=== PATIENT | female | born 1970 ===

== ENCOUNTER 2017-07-29 19:53 | Emergency (ER) | payer MEDICARE ==
[2017-07-29 20:54] LABS: HCG,QUALITATIVE URINE NEGATIVE (NEGATIVE)
[2017-07-29 21:03] LABS: SQUAMOUS EPITHIAL 10 /hpf (0-5); URINE BILIRUBIN NEGATIVE (NEGATIVE); URINE BLOOD 1+ (NEGATIVE); URINE CLARITY Hazy (Clear); URINE COLOR Yellow (YELLOW); URINE GLUCOSE (UA) 3+ mg/dL (Normal); URINE LEUKOCYTE ESTERASE TRACE Leu/uL (Negative); URINE PROTEIN NEGATIVE (NEGATIVE); URINE UROBILINOGEN NORMAL mg/dL (0.2-1.0)
--- NOTE | 2017-07-29 21:28 | C.PDOC ---
History Of Present Illness <Spring Britton - Last Filed: 07/29/17 21:43> <Pilo Pedro DO - Last Filed: 07/30/17 01:03> Patient is a 47 y/o F with PMHx DMII, HTN, bipolar disorder, and fibroids who presents today for 3 days of lower abdominal pain that radiates to the low back and buttocks. Patient describes the pain as sharp, rates it as a 9/10, and says it comes and goes. Patient has never had pain like this before. Patient admits to nausea, but no vomiting. Patient denies constipation or diarrhea. Patient's LMP was 2 years ago. Patient denies any vaginal bleeding or discharge or any dysuria or hematuria. (Spring Britton) History Per: Patient History/Exam Limitations: language barrier Onset/Duration Of Symptoms: Days Current Symptoms Are (Timing): Still Present Severity: Moderate Location Of Pain/Discomfort: RLQ, LLQ Radiation Of Pain To:: Back, Flank, Other (buttocks) Quality Of Discomfort: Sharp Associated Symptoms: Back Pain (low back pain bilaterally ). denies: Fever, Nausea, Vomiting, Diarrhea, Constipation, Urinary Symptoms Exacerbating Factors: Movement Alleviating Factors: None Last Bowel Movement: Yesterday <Spring Britton - Last Filed: 07/29/17 21:43> <Pilo Pedro DO - Last Filed: 07/30/17 01:03> Chief Complaint (Nursing): Abdominal Pain Past Medical History - Medical History PMH: Bipolar Disorder, Diabetes, HTN Surgical History: Family History: States: Diabetes (mom and dad), Hypertension (mom and dad) - Social History Hx Tobacco Use: Yes (1/2 ppd for 2 years) Hx Alcohol Use: No Hx Substance Use: No <Spring Britton - Last Filed: 07/29/17 21:43> Vital Signs: Last Vital Signs Temp 98.2 F 07/30/17 00:00 Pulse 74 07/30/17 00:00 Resp 14 07/30/17 00:00 BP 169/84 H 07/30/17 00:00 Pulse Ox 98 07/30/17 00:00 Review Of Systems Constitutional: Negative for: Fever, Chills Cardiovascular: Negative for: Chest Pain Respiratory: Negative for: Cough, Shortness of Breath Gastrointestinal: Positive for: Nausea, Abdominal Pain. Negative for: Vomiting , Diarrhea, Constipation Genitourinary: Negative for: Dysuria, Hematuria Musculoskeletal: Positive for: Back Pain (low back pain b/l ) Skin: Negative for: Rash Psych: Positive for: Other (bipolar) <Spring BrittonRony - Last Filed: 07/29/17 21:43> Physical Exam - Physical Exam Appears: Non-toxic, In Acute Distress Skin: Normal Color, Warm, Dry Head: Atraumatic, Normacephalic, No Tenderness Eye(s): bilateral: Normal Inspection Neck: Normal, Normal ROM Chest: Symmetrical Cardiovascular: Rhythm Regular Respiratory: Normal Breath Sounds Gastrointestinal/Abdominal: Bowel Sounds, Soft, Tenderness (RLQ and LLQ tenderness to palpation ) Back: Normal Inspection, No CVA Tenderness Extremity: Normal ROM, No Tenderness, No Pedal Edema Neurological/Psych: Oriented x3 <EleuteriofletcherSpring Elmira - Last Filed: 07/29/17 21:43> ED Course And Treatment O2 Sat by Pulse Oximetry: 98 <Spring Britton Elmira - Last Filed: 07/29/17 21:43> - Laboratory Results Result Diagrams: 07/29/17 21:34 07/29/17 21:34 - CT Scan/US CT abd/pelvis Other Rad Studies (CT/US): Read By Radiologist, Radiology Report Reviewed CT/US Interpretation: FINDINGS: Lung bases: Small airway trapping and microatelectasis. ABDOMEN: Liver: There is hepatomegaly and fatty infiltration of the liver. 2 cm enhancing or hyperdense mass. in the left hepatic lobe, which is likely a hemangioma. This could be further evaluated nonemergently. Too small to characterize subcapsular right hepatic hypodensity. Gallbladder and bile ducts: Contracted gallbladder No calcified stones. No ductal dilation. Pancreas: Unremarkable. No mass. No ductal dilation. Spleen: Unremarkable. No splenomegaly. Adrenals: Unremarkable. No mass. Kidneys and ureters: No hydronephrosis or differential renal nephrogram. Stomach and bowel: Slightly disorganized appearance to the distal and terminal ileum without. obstruction requires clinical correlation.. Diverticulosis coli, without full-filling the C.T. criteria for. diverticulitis. No perforation, or abscess. No signs or history of bleeding provided. PELVIS: Appendix: No findings to suggest acute appendicitis. Bladder: Unremarkable. No mass. Reproductive: Unremarkable as visualized. ABDOMEN and PELVIS: Intraperitoneal space: Unremarkable. No free air. No significant fluid collection. Bones/joints: No acute fracture. No dislocation. Soft tissues: Unremarkable. Vasculature: Unremarkable. No abdominal aortic aneurysm. Lymph nodes: Unremarkable. No enlarged lymph nodes. IMPRESSION: No definitive or acute CT findings to explain the patient's presentation. Hepatic lesions which are likely benign but require definitive nonemergent evaluation if not previously. done. The appendix is not identified with certainty but there are no secondary C.T. findings of appendicitis. Slightly disorganized appearance to the distal and terminal ileum. Diverticulosis without CT diverticulitis. There is hepatomegaly and fatty infiltration of the liver. Thank you for allowing us to participate in the care of your patient. Dictated and Authenticated by: Ernestine Hill MD. 07/30/2017 12:52 AM Eastern Time ([place] & [place]) <Pilo Pedro DO - Last Filed: 07/30/17 01:03> Medical Decision Making <Spring Britton - Last Filed: 07/29/17 21:43> <Pilo Pedro DO - Last Filed: 07/30/17 01:03> Medical Decision Making: Assessment: LLQ and RLQ abdominal pain Plan: Labs CT abd/ pelvis with iv contrast U/A and urinalysis (Spring Britton) Disposition <Spring Britton - Last Filed: 07/29/17 21:43> - Disposition Disposition Time: 00:50 <Pilo Pedro DO - Last Filed: 07/30/17 01:03> - Disposition Referrals: [facility] Rachana Req, [Non-Staff] - Disposition: HOME/ ROUTINE Condition: GOOD Additional Instructions: SOHAN JARVIS, thank you for letting us take care of you today. Your provider was Pilo Pedro DO and you were treated for STOMACH PAINS. The emergency medical care you received today was directed at your acute symptoms. If you were prescribed any medication, please fill it and take as directed. It may take several days for your symptoms to resolve. Return to the Emergency Department if your symptoms worsen, do not improve, or if you have any other problems. Please contact your doctor or call one of the physicians/clinics you have been referred to that are listed on the Patient Visit Information form that is included in your discharge packet. Bring any paperwork you were given at discharge with you along with any medications you are taking to your follow up visit. Our treatment cannot replace ongoing medical care by a primary care provider outside of the emergency department. Thank you for allowing the [facility] team to be part of your care today. Follow up with your primary care doctor in 2-3 days for re-evaluation and further management. SOHAN JARVIS, samir por dejarnos atenderlo hoy. Lopez proveedor fue Pilo Passafaro DO y usted recibi tratamiento para TESSIE DE ESTMAGO. La atencin m dica de emergencia que recibi hoy estaba dirigida a harriet sntomas agudos. Si le prescribieron algn medicamento, llnelo y tome segn las indicaciones. Harriet s ntomas pueden tardar varios mendoza en resolverse. Regrese al Departamento de Emergencia si harriet sntomas empeoran, no mejoran o si tiene algn otro problema. Comunquese con lopez mdico o llame a karen de los mdicos / clnicas a los que irwin sido referido que figura en el formulario de Informacin de visita del paciente que se incluye en lopez paquete de martin. Traiga todos los documentos que recibi al momento del martin junto con los medicamentos que est tomando en lopez visita de seguimiento. Nuestro tratamiento no puede reemplazar la atencin mdica en curso por un proveedor de atencin primaria fuera del departamento de emergencia. Samir por permitir que el equipo de [facility] sea parte de lopez cuidado hoy. Cat un seguimiento con lopez mdico de atencin primaria en 2-3 mendoza para anahy nueva evaluacin y administracin adicional. Prescriptions: Ciprofloxacin [Cipro] 500 mg PO BID #10 tab Ibuprofen [Motrin] 600 mg PO Q6 PRN #20 tab PRN Reason: Pain, Moderate (4-7) Instructions: Urinary Tract Infection, Adult (DC) Forms: Gen Discharge Inst South African, Passworks (South African) Print Language: SWEDISH - Clinical Impression Clinical Impression: Abdominal pain - PA / TAR AND AMMONIA PUMP OPERATOR / Resident Statement / has reviewed & agrees with the documentation as recorded. / has examined the patient and agrees with the treatment plan. <Pilo Pedro DO - Last Filed: 07/30/17 01:03>
[2017-07-29 21:38] LABS: BASO % 0.3 % (0.0-2.0); EOS # 0.3 K/uL (0.0-0.7); EOS % 4.2 % (0.0-4.0); HEMOGLOBIN 12.6 g/dL (11.0-16.0); LYMPH # 2.2 K/uL (1.0-4.3); LYMPH % 33.1 % (20.0-40.0); MEAN CELL VOLUME 95.6 fL (81.0-99.0); MEAN CORPUSCULAR HEMOGLOBIN 32.2 pg (27.0-31.0); MEAN CORPUSCULAR HGB CONC 33.7 g/dL (33.0-37.0); MEAN PLATELET VOLUME 8.5 fL (7.2-11.7); MONO # 0.4 K/uL (0.0-0.8); MONO % 5.3 % (0.0-10.0); NEUT # 3.8 K/uL (1.8-7.0); NEUT % 57.1 % (50.0-75.0); NRBC % 0.2 % (0.0-2.0); RBC 3.92 Mil/uL (3.80-5.20); RED CELL DISTRIBUTION WIDTH 12.3 % (11.5-14.5); WHITE BLOOD COUNT 6.7 K/uL (4.8-10.8)
[2017-07-29 21:49] LABS: ALB/GLOB RATIO 1.5 (1.0-2.1); ALT/SGPT 22 U/L (9-52); AST/SGOT 18 U/L (14-36); BLOOD UREA NITROGEN 12 mg/dL (7-17); CALCIUM 9.1 mg/dl (8.6-10.4); GFR AFRICAN-AMERICAN > 60; GFR NON-AFRICAN AMERICAN > 60
[2017-07-29] MEDS ORDERED: Iodixanol 320 MG/ML 100 ML BOTTLE IV ONE (22:26)
[2017-07-30 01:15] VITALS: BP 150/90; PULSE 90; RESP 20; TEMP 97.2; O2SAT 97
--- NOTE | 2017-07-30 08:42 | CT ---
PROCEDURE: CT Abdomen and Pelvis with contrast HISTORY: RLQ and LLQ pain COMPARISON: None. TECHNIQUE: Contrast dose: 100 cc of Omnipaque Radiation dose: Total exam DLP = 486mGy-cm. This CT exam was performed using one or more of the following dose reduction techniques: Automated exposure control, adjustment of the mA and/or kV according to patient size, and/or use of iterative reconstruction technique. FINDINGS: LOWER THORAX: Unremarkable. LIVER: 17 millimeter enhancing lesion in the peripheral left hepatic lobe which is nonspecific. Recommend correlation with MRI with and without contrast. 1 centimeter right hepatic lobe GALLBLADDER AND BILE DUCTS: Unremarkable. PANCREAS: Unremarkable. No gross lesion or ductal dilatation. SPLEEN: Unremarkable. ADRENALS: Unremarkable. No mass. KIDNEYS AND URETERS: Unremarkable. No hydronephrosis. No solid mass. VASCULATURE: Unremarkable. No aortic aneurysm. BOWEL: Unremarkable. No obstruction. No gross mural thickening. APPENDIX: Normal appendix. PERITONEUM: Unremarkable. No free fluid. No free air. LYMPH NODES: Unremarkable. No enlarged lymph nodes. BLADDER: Unremarkable. REPRODUCTIVE: Unremarkable. BONES: No acute fracture. OTHER FINDINGS: None. IMPRESSION: 17 millimeter enhancing lesion in the peripheral left hepatic lobe which is nonspecific. Recommend correlation with MRI with and without contrast.
== END 2017-07-30 01:15 | disposition home or self-care (01) ==
LOC: C.ER 19:53
DX: R10.9 Unspecified abdominal pain (principal); I10 Essential (primary) hypertension; E11.9 Type 2 diabetes mellitus without complications
CPT/HCPCS: 74177; 80053; 81001; 84703; 85025; 87086; 96374; 99285; J1885; Q9967

== ENCOUNTER 2018-07-10 15:02 | Inpatient (IN) | payer MEDICARE ==
[2018-07-10 15:34] LABS: BASO # 0.1 K/uL (0.0-0.2); BASO % 1.3 % (0.0-2.0); EOS # 0.2 K/uL (0.0-0.7); EOS % 1.8 % (0.0-4.0); LYMPH # 2.2 K/uL (1.0-4.3); LYMPH % 23.1 % (20.0-40.0); MEAN CELL VOLUME 92.6 fL (81.0-99.0); MEAN CORPUSCULAR HEMOGLOBIN 31.4 pg (27.0-31.0); MEAN CORPUSCULAR HGB CONC 33.9 g/dL (33.0-37.0); MONO # 0.5 K/uL (0.0-0.8); MONO % 4.9 % (0.0-10.0); NEUT # 6.5 K/uL (1.8-7.0); NEUT % 68.9 % (50.0-75.0); RBC 4.46 Mil/uL (3.80-5.20); RED CELL DISTRIBUTION WIDTH 12.7 % (11.5-14.5); WHITE BLOOD COUNT 9.4 K/uL (4.8-10.8)
[2018-07-10 15:46] LABS: ALB/GLOB RATIO 1.8 (1.0-2.1); ALBUMIN 4.9 g/dL (3.5-5.0); ALT/SGPT 19 U/L (9-52); AST/SGOT 20 U/L (14-36); BLOOD UREA NITROGEN 8 mg/dL (7-17); CALCIUM 9.6 mg/dl (8.6-10.4); GFR NON-AFRICAN AMERICAN > 60
[2018-07-10 17:08] LABS: SQUAMOUS EPITHIAL 2 /hpf (0-5); URINE BILIRUBIN NEGATIVE (NEGATIVE); URINE BLOOD 2+ (NEGATIVE); URINE CLARITY Clear (Clear); URINE COLOR Yellow (YELLOW); URINE GLUCOSE (UA) 3+ mg/dL (Normal); URINE LEUKOCYTE ESTERASE NEG Leu/uL (Negative); URINE PROTEIN NEGATIVE (NEGATIVE); URINE UROBILINOGEN NORMAL mg/dL (0.2-1.0)
[2018-07-10 17:11] LABS: HCG,QUALITATIVE URINE NEGATIVE (NEGATIVE)
--- NOTE | 2018-07-10 17:17 | C.PDOC ---
History Of Present Illness 48-year-old female presents to the emergency department with complaints of suicidal ideation last week but not anymore. Patient states that people are following me and because of that I want to . She denies any other active physical complaints at this time. Time Seen by Provider: 07/10/18 15:13 Chief Complaint (Nursing): Psychiatric Evaluation History Per: Patient History/Exam Limitations: no limitations Onset/Duration Of Symptoms: Other (1 week) Current Symptoms Are (Timing): Still Present Suicide/Self Injury Attempted (Context): None Modifying Factor(s): None Severity: None Associated Symptoms: Suicidal Thoughts. denies: Suicidal Plan Past Medical History Reviewed: Historical Data, Nursing Documentation, Vital Signs Vital Signs: Last Vital Signs Temp 98.2 F 07/10/18 15:14 Pulse 87 07/10/18 15:14 Resp 16 07/10/18 15:14 BP 150/91 H 07/10/18 15:14 Pulse Ox 98 07/10/18 15:14 Primary Care Provider: FAMILY PROVIDER,NO - Medical History PMH: Bipolar Disorder, Diabetes Denies: Hepatitis (Patient denied.), HIV (Patient denied.), HTN (Patient denied.), Seizures (Patient denied.), Sexually Transmitted Disease (Patient denied.) Surgical History: No Surg Hx, Family History: States: Diabetes (mom and dad), Hypertension (mom and dad) - Social History Hx Tobacco Use: Yes (1/2 ppd for 2 years) Hx Alcohol Use: No Hx Substance Use: No Review Of Systems Except As Marked, All Systems Reviewed And Found Negative. Constitutional: Negative for: Fever, Chills, Weakness Cardiovascular: Negative for: Chest Pain Respiratory: Negative for: Cough, Shortness of Breath Gastrointestinal: Negative for: Nausea, Vomiting, Abdominal Pain, Diarrhea Psych: Positive for: Suicidal ideation Physical Exam - Physical Exam Appears: Non-toxic, No Acute Distress Skin: Normal Color, Warm, Dry Head: Atraumatic, Normacephalic Eye(s): bilateral: Normal Inspection, PERRL, EOMI Neck: Normal, Supple Chest: Symmetrical, No Tenderness Cardiovascular: Rhythm Regular, No Murmur Respiratory: Normal Breath Sounds, No Rales, No Rhonchi, No Wheezing Gastrointestinal/Abdominal: Soft, No Tenderness, No Guarding, No Rebound Extremity: Normal ROM Neurological/Psych: Oriented x3, Normal Speech, Normal Cognition ED Course And Treatment - Laboratory Results Result Diagrams: 07/10/18 15:27 07/10/18 15:27 Lab Results: Total Bilirubin 0.5 mg/dL (0.2-1.3) 07/10/18 15:27 AST 20 U/L (14-36) 07/10/18 15:27 ALT 19 U/L (9-52) 07/10/18 15: Alkaline Phosphatase 77 U/L (38-126) 07/10/18 15: Total Protein 7.6 g/dL (6.3-8.3) 07/10/18 15: Albumin 4.9 g/dL (3.5-5.0) 07/10/18 15: Globulin 2.7 gm/dL (2.2-3.9) 07/10/18 15: Albumin/Globulin Ratio 1.8 (1.0-2.1) 07/10/18 15: Urine Color Yellow (YELLOW) 07/10/18 17:00 Urine Clarity Clear (Clear) 07/10/18 17:00 Urine pH 5.0 (5.0-8.0) 07/10/18 17:00 Ur Specific [place] 1.014 (1.003-1.030) 07/10/18 17:00 Urine Protein Negative mg/dL (NEGATIVE) 07/10/18 17:00 Urine Glucose (UA) 3+ mg/dL (Normal) H 07/10/18 17:00 Urine Ketones Negative mg/dL (NEGATIVE) 07/10/18 17:00 Urine Blood 2+ (NEGATIVE) H 07/10/18 17:00 Urine Nitrate Negative (NEGATIVE) 07/10/18 17:00 Urine Bilirubin Negative (NEGATIVE) 07/10/18 17:00 Urine Urobilinogen Normal mg/dL (0.2-1.0) 07/10/18 17:00 Ur Leukocyte Esterase Neg Jean/uL (Negative) 07/10/18 17:00 Urine WBC (Auto) 2 /hpf (0-5) 07/10/18 17:00 Urine RBC (Auto) 11 /hpf (0-3) H 07/10/18 17:00 Ur Squamous Epith Cells 2 /hpf (0-5) 07/10/18 17:00 Urine HCG, Qual Negative (NEGATIVE) 07/10/18 17:00 Urine HCG, Qual Negative (NEGATIVE) 07/10/18 17:00 O2 Sat by Pulse Oximetry: 98 (RA) Pulse Ox Interpretation: Normal Medical Decision Making Medical Decision Making: Plan: Chemistry CBC HCG Qualitative Urine Urinalysis Disposition Counseled Patient/Family Regarding: Studies Performed, Diagnosis - Disposition Disposition: HOSPITALIZED Disposition Time: 18:15 Condition: STABLE - Clinical Impression Clinical Impression: Psychosis, Hyperglycemia - Scribe Statement The provider has reviewed the documentation as recorded by the Scribe (Jaden Dunlap) Provider Attestation: All medical record entries made by the Scribe were at my direction and pe rsonally dictated by me. I have reviewed the chart and agree that the record accurately reflects my personal performance of the history, physical exam, medical decision making, and the department course for this patient. I have also personally directed, reviewed, and agree with the discharge instructions and disposition.
[2018-07-10 17:24] LABS: BARBITURATES, UR NEGATIVE (NEGATIVE); BENZODIAZEPINES, UR NEGATIVE (NEGATIVE); OPIATES, UR NEGATIVE (NEGATIVE); PHENCYCLIDINE, UR NEGATIVE (NEGATIVE)
[2018-07-10 18:16] VITALS: O2SAT 98
--- NOTE | 2018-07-10 19:11 | PCM.BM ---
<Cher Sheikh - Last Filed: 07/10/18 19:08> Treatment Plan Problems - Problems identified on initial assessmt Delusions Date Initiated: 07/10/18 Time Initiated: 19:08 Assessment reference: NA Status: Active Thought Process Date Initiated: 07/10/18 Time Initiated: 19:09 Assessment reference: NA Status: Active Medication Nonadherence Date Initiated: 07/10/18 Time Initiated: 19:09 Assessment reference: NA Status: Active Treatment assets and liabiliti Patient Assests: adapts well, cooperative, ADL independent, negotiates basic needs, cognitively intact Patient Liabilities: financial problems, medical problems (HTN, DM, ), language/speech (Azerbaijani speaking) - Milieu Protocol Maintain good personal hygiene: daily Encourage regular showers, daily Remind patient to perform daily oral care, daily Assist patient to perform ADL's (Self), other Assist patient to perform ADL's Conduct patient checks and document Observation sheet: Q15 minutes (For safety) Maintain personal safety: every shift Educate patient to report safety concerns to staff, every shift Monitor environment for contraband/sharps Medication safety: Monitor for expected outcome, potential side effects: every shift, Assess barriers to learning: every shift, Assess readiness for medication education: every shift <Lily Winston - Last Filed: 07/11/18 11:21> - Diagnosis (1) Paranoid type schizophrenia, chronic state with acute exacerbation Status: Acute Interventions: 07/11/18 11:22 * Assess/adjust medications daily and /or as needed * See patient on an individual basis 7x/week to assess status of hallucinations * Discuss risks, benefits, side effects and alternatives of medications * <Lynne Stewart - Last Filed: 07/11/18 12:19> Family Contact Family involvement: Family/SO is involved Family contact: Patient declines to allow family contact at present - Goals for Treatment Patient goals for treatment: "I need help, people are after me." Discharge/Continuing Care - Education Needs Education Needs: Patient Medication, Patient Coping Skills - Discharge Discharge Criteria: Tolerates medication w/o severe side effects, Reduction of target symptoms Discharge to:: Home, With Family - Treatment Team Participation Discussed with Family/SO: No Was Patient/Family/SO present at Treatment Team Meeting: Yes
--- NOTE | 2018-07-11 10:08 | PCM.PSYCH ---
Initial Psychiatric Evaluation - Initial Psychiatric Evaluation Type of Admission: Voluntary Legal Status: Capacity Chief Complaint (in patient's own words): I was hearing voices to kill myself. History of Present Illness and Precipitating Events: Patient is 48 y/o female who is , unemployed, sami-only speaking with past hospitalization at [facility] in 2012 for suicidal ideation and PMH of Bipolar and psychosis, who comes in with auditory and visual hallucinations with paraonia. Patient remained disorganized and internally preoccupied. She states that she sees bad people who chases her and she hears voices telling her to kill herself Patient was also hospitalized at [facility] for same reasons. She follows outpatient psych in [place] and her doctor prescribed her Trazodone, Olanzpine and two other medications which she forgot the name and told her that her symptoms are all in her mind She tolerates the medication fine. She also had another suicide attempt last week where she tried to overdose on trazdone but vomitted it. She previously tried Risperidone injection which helped. Patient remained internally preoccupied during the assessment and seemed to be responding to internal stimuli. Patient would grab her head and state "the voices are giving me headaches." She expresses hopelessness, helplessness, depressed mood, poor sleep and poor appetite. She reports anxiety and sometimes panic attacks. She reports auditory and visual hallucinations and paranoia. She denies any drinking or any substance abuse. Past Psych. Schizoaffective disorder Past medical history DM, HTN Current Medications: Active Medications Generic Name Dose Route Start Last Admin Trade Name Freq PRN Reason Stop Dose Admin Benztropine Mesylate 1 mg 07/10/18 19:39 07/11/18 09:14 Cogentin PO 1 mg Q6 PRN Administration Muscle spasm Haloperidol 5 mg 07/10/18 19:26 07/11/18 09:14 Haldol PO 5 mg Q6 PRN Administration Agitation Hydroxyzine HCl 25 mg 07/11/18 09:00 Atarax PO Q4H PRN Anxiety Ibuprofen 600 mg 07/11/18 09:00 Motrin Tab PO Q6H PRN Pain, moderate (4-7) Insulin Human Regular 0 unit 07/11/18 11:30 Novolin R SC ACHS LAKISHA Protocol Lisinopril 10 mg 07/11/18 10:00 07/11/18 09:13 Zestril PO 10 mg DAILY LAKISHA Administration Metformin HCl 500 mg 07/11/18 10:00 07/11/18 09:13 Glucophage PO 500 mg BID LAKISHA Administration Pneumococcal Polyvalent Vaccine 0.5 ml 07/13/18 10:00 Pneumovax 23 Vaccine IM 07/13/18 10:01 .ONCE ONE Trazodone HCl 50 mg 07/10/18 21:14 07/10/18 21:18 Desyrel PO 50 mg HS PRN Administration Insomnia Past Psychiatric History - Past Psychiatric History Previous Treatment History: Inpatient Pertinent Medical Hx (Current Medical&Sleep Prob, Allergies): Allergies Allergy/AdvReac Type Severity Reaction Status Date / Time No Known Allergies Allergy Unverified 07/29/17 20:31 Clonazepam 07/29/17 Lisinopril 07/29/17 MetFORMIN 07/29/17 Trazodone HCl 07/29/17 Review of Systems - Review of Systems All systems: reviewed and no additional remarkable complaints except - Psychiatric Psychiatric: Anxiety, Auditory Hallucinations, Hallucinations, Irritability, Paranoia, Suicidal Ideation Mental Status Examination - Personal Presentation Personal Presentation: Looks stated age - Affect Affect: Constricted, Depressed - Motor Activity Motor Activity: Psychomotor Retardation - Reliability in Providing Information Reliability in Providing Information: Poor, due to alteration in thoughts, Poor, due to altered mood - Speech Speech: Disorganized - Mood Mood: Depressed, Anxious - Formal Thought Process Formal Thought Process: Hallucinations, Delusions, Paranoia, Loosening of associations - Hallucinations/Delusions Hallucinations: Visual, Auditory Delusions: Persecution - Obsessions/Compulsions Obsessions: No Compulsions: No - Cognitive Functions Orientation: Person, Place, Situation, Time Sensorium: Alert Attention/Concentration: Attentive Abstract Thinking: [place] Estimate of Intelligence: Below average Judgement: Imparied, as evidence by: Poor judgement, Imparied, as evidence by: Lack of insight into illness - Risk Risk: Diminished functioning - Limitations Limitations: Living alone DSM 5 DX - DSM 5 DSM 5 Diagnosis: Schizoaffective disorder bipolar type - Recommended/Plan of Treatment Treatment Recommendations and Plan of Treatment: Schizoaffective disorder bipolar type CBT Psychoeducation Supportive therapy and group therapy Haldol for psychosis Cogentin for EPS Trazodone for insomnia Zoloft for depression Hydroxyzine for anxiety DM Continue Metformin HTN Continue lisinopril
[2018-07-11] MEDS: (Novolin R) Insulin Human Regular 100 units/ml vial SC SCH ×3 (11:24→21:30)
[2018-07-12] MEDS: (Novolin R) Insulin Human Regular 100 units/ml vial SC SCH ×4 (08:17→21:12)
--- NOTE | 2018-07-12 19:59 | PCM.PYCHPN ---
Psychiatric Progress Note - Psychiatric Progress Note Patient seen today, length of contact: 17 Mins Problems Identified/Issues Discussed: The pt is seen, chart reviewed, case is discussed with staff. Staff assisted with interpretation The pt is compliant with medications and reports no side-effects. Symptoms are improving but needs more time to stabilize and to avoid relapse. She however still have paranoid thoughts, and have been thinking that staff are talking about her on the phone, and she is still seeing bad people, but this has decreased in intensity and frequency. Pt attends groups and activities. Support given, psycho-education provided. After care discussed. Medication Change: No Medical Record Reviewed: Yes Mental Status Examination - Cognitive Function Orientation: Person, Place, Situation, Time Attention: WNL Fund of Knowledge: Poor - Mood Mood: Depressed, Anxious - Affect Affect: Constricted, Depressed - Formal Thought Process Formal Thought Process: Hallucinations, Delusions, Paranoia, Loosening of associations - Suicidal Ideation Suicidal Ideation: No - Homicidal Ideation Homicidal Ideation: No Goal/Treatment Plan - Goal/Treatment Plan Need for Continued Stay: Remain at risks for inpatient hospitalization, Discharge may exacerbated symptoms Progress Toward Problem(s) and Goals/Treatment Plan: Continue medications Support and psychoeducation daily Attend groups and activities daily Individual therapy After care planning by SW and the team - Smoking Cessation Smoking Cessation Initiated: No Reason for not providing: Patient is a non-smoker
[2018-07-13] MEDS: (Novolin R) Insulin Human Regular 100 units/ml vial SC SCH ×4 (08:17→21:25)
[2018-07-13] MEDS ORDERED: Pneumococcal 23-Valent Vaccine IM ONE (10:00)
[2018-07-14] MEDS: (Novolin R) Insulin Human Regular 100 units/ml vial SC SCH ×4 (08:10→21:28)
--- NOTE | 2018-07-14 22:47 | PCM.PYCHPN ---
Psychiatric Progress Note - Psychiatric Progress Note Patient seen today, length of contact: 17 Mins Patient Chief Complaint: "I want to go home" Problems Identified/Issues Discussed: The pt is seen, chart reviewed, case is discussed with staff. Support and psychoeducation given, CBT and NE used briefly The pt is improving slowly but needs more time due to severity of symptoms and relapse risk. Patient is still paranoid, and thinks reports seeing bad people. No SEs from medications, risks discussed. After care discussed Medication Change: No Medical Record Reviewed: Yes Mental Status Examination - Cognitive Function Orientation: Person, Place, Situation, Time - Mood Mood: Depressed, Anxious - Affect Affect: Constricted, Depressed - Formal Thought Process Formal Thought Process: Hallucinations, Delusions, Paranoia, Loosening of associations - Suicidal Ideation Suicidal Ideation: No - Homicidal Ideation Homicidal Ideation: No Goal/Treatment Plan - Goal/Treatment Plan Need for Continued Stay: Remain at risks for inpatient hospitalization, Discharge may exacerbated symptoms Progress Toward Problem(s) and Goals/Treatment Plan: Continue medications Support and psychoeducation daily Attend groups and activities daily Individual therapy After care planning by SHEELA and the team
[2018-07-15] MEDS: (Novolin R) Insulin Human Regular 100 units/ml vial SC SCH ×4 (08:14→21:20)
--- NOTE | 2018-07-15 11:31 | PCM.PYCHPN ---
Psychiatric Progress Note - Psychiatric Progress Note Patient seen today, length of contact: 17 Mins Patient Chief Complaint: I was hearing voices to kill myself. Problems Identified/Issues Discussed: Patient was seen and evaluated, chart reviewed and discussed with the staff. As per staff, she remained disorganized and internally preoccupied. She is responding to internal stimuli and talking to herself. As per staff she remained isolative, withdrawn. She still appears paranoid, delusional and bizarre. She is taking medication and denies any side effects She needs to stay longer for further stabilization. Supportive therapy was given. Medication Change: No Medical Record Reviewed: Yes Mental Status Examination - Cognitive Function Orientation: Person, Place, Situation, Time Memory: Intact Attention: Poor Concentration: Poor Association: Loose Fund of Knowledge: Poor - Mood Mood: Depressed, Anxious - Affect Affect: Constricted, Depressed - Formal Thought Process Formal Thought Process: Hallucinations, Delusions, Paranoia, Loosening of associations - Suicidal Ideation Suicidal Ideation: No - Homicidal Ideation Homicidal Ideation: No Goal/Treatment Plan - Goal/Treatment Plan Need for Continued Stay: Remain at risks for inpatient hospitalization, Discharge may exacerbated symptoms Progress Toward Problem(s) and Goals/Treatment Plan: Schizoaffective disorder bipolar type CBT Psychoeducation Supportive therapy and group therapy Haldol for psychosis Cogentin for EPS Trazodone for insomnia Zoloft for depression Hydroxyzine for anxiety DM Continue Metformin HTN Continue lisinopril
[2018-07-16] MEDS: (Novolin R) Insulin Human Regular 100 units/ml vial SC SCH ×4 (07:57→22:25)
[2018-07-16] MEDS ORDERED: Haloperidol Decanoate 100 mg/ml Inj IM ONE (10:53)
--- NOTE | 2018-07-16 10:53 | PCM.PYCHPN ---
Psychiatric Progress Note - Psychiatric Progress Note Patient seen today, length of contact: 17 Mins Patient Chief Complaint: I m hearing voices Problems Identified/Issues Discussed: Patient was seen and evaluated, chart reviewed and discussed with the staff. As per staff, she remained disorganized and internally preoccupied. She is responding to internal stimuli and talking to herself. As per staff she remained isolative, withdrawn. She still appears paranoid, delusional and bizarre. She is taking medication and denies any side effects She needs to stay longer for further stabilization. Supportive therapy was given. Medication Change: No Medical Record Reviewed: Yes Mental Status Examination - Cognitive Function Orientation: Person, Place, Situation, Time Memory: Intact Attention: WNL Concentration: Poor Association: Loose Fund of Knowledge: Poor - Mood Mood: Depressed, Anxious - Affect Affect: Constricted, Depressed - Speech Speech: Soft - Formal Thought Process Formal Thought Process: Hallucinations, Delusions, Paranoia, Loosening of associations - Suicidal Ideation Suicidal Ideation: No - Homicidal Ideation Homicidal Ideation: No Goal/Treatment Plan - Goal/Treatment Plan Need for Continued Stay: Remain at risks for inpatient hospitalization, Discharge may exacerbated symptoms Progress Toward Problem(s) and Goals/Treatment Plan: Schizoaffective disorder bipolar type CBT Psychoeducation Supportive therapy and group therapy Haldol for psychosis Haldol Decanoate Cogentin for EPS Trazodone for insomnia Trileptal for mood DC Zoloft Hydroxyzine for anxiety DM Continue Metformin HTN Continue lisinopril
[2018-07-17] MEDS: (Novolin R) Insulin Human Regular 100 units/ml vial SC SCH ×4 (07:53→21:22)
[2018-07-18] MEDS: (Novolin R) Insulin Human Regular 100 units/ml vial SC SCH ×4 (07:52→21:42)
[2018-07-19] MEDS: (Novolin R) Insulin Human Regular 100 units/ml vial SC SCH ×5 (07:15→21:13)
--- NOTE | 2018-07-19 12:15 | PCM.PYCHPN ---
Psychiatric Progress Note - Psychiatric Progress Note Patient seen today, length of contact: 17 Mins Patient Chief Complaint: I was hearing voices to kill myself. Medication Change: No Medical Record Reviewed: Yes Mental Status Examination - Cognitive Function Orientation: Person, Place, Situation, Time - Mood Mood: Depressed, Anxious - Affect Affect: Constricted, Depressed - Formal Thought Process Formal Thought Process: Hallucinations, Delusions, Paranoia, Loosening of associations - Suicidal Ideation Suicidal Ideation: No - Homicidal Ideation Homicidal Ideation: No Goal/Treatment Plan - Goal/Treatment Plan Need for Continued Stay: Remain at risks for inpatient hospitalization, Discharge may exacerbated symptoms Progress Toward Problem(s) and Goals/Treatment Plan: Schizoaffective disorder bipolar type CBT Psychoeducation Supportive therapy and group therapy Haldol for psychosis Haldol Decanoate Cogentin for EPS Trazodone for insomnia DC Zoloft for depression Trileptal for mood Hydroxyzine for anxiety DM Continue Metformin HTN Continue lisinopril
--- NOTE | 2018-07-19 12:35 | PCM.PYCHPN ---
Psychiatric Progress Note - Psychiatric Progress Note Patient seen today, length of contact: 17 Mins Patient Chief Complaint: I am feeling ramírez Problems Identified/Issues Discussed: Patient was seen and evaluated, chart reviewed and discussed with the staff. As per staff, she appears more organized and less internally preoccupied. She is not responding to internal stimuli anymore. As per staff she remained isolative, withdrawn. She still appears paranoid, de lusional and bizarre. She is taking medication and denies any side effects She needs to stay longer for further stabilization. Supportive therapy was given. Medication Change: Yes Medical Record Reviewed: Yes Mental Status Examination - Cognitive Function Orientation: Person, Place, Situation, Time Memory: Intact Attention: WNL Concentration: Poor Association: Loose Fund of Knowledge: Poor - Mood Mood: Depressed, Anxious - Affect Affect: Constricted, Depressed - Formal Thought Process Formal Thought Process: Hallucinations, Delusions, Paranoia, Loosening of associations - Suicidal Ideation Suicidal Ideation: No - Homicidal Ideation Homicidal Ideation: No Goal/Treatment Plan - Goal/Treatment Plan Need for Continued Stay: Remain at risks for inpatient hospitalization, Discharge may exacerbated symptoms Progress Toward Problem(s) and Goals/Treatment Plan: Schizoaffective disorder bipolar type CBT Psychoeducation Supportive therapy and group therapy Haldol for psychosis Cogentin for EPS Trazodone for insomnia Hydroxyzine for anxiety Haldol Decanoate 100 mg i/m DM Continue Metformin HTN Continue lisinopril
--- NOTE | 2018-07-19 12:35 | PCM.PYCHPN ---
Psychiatric Progress Note - Psychiatric Progress Note Patient seen today, length of contact: 17 Mins Patient Chief Complaint: I am feeling ramírez Problems Identified/Issues Discussed: Patient was seen and evaluated, chart reviewed and discussed with the staff. As per staff she is more social now. She reports improvement in the paranoia. As per staff, she appears more organized and less internally preoccupied. She is taking medication and denies any side effects She needs to stay longer for further stabilization. Supportive therapy was given. Medication Change: No Medical Record Reviewed: Yes Mental Status Examination - Cognitive Function Orientation: Person, Place, Situation, Time Memory: Intact Attention: WNL Concentration: WNL Association: Loose Fund of Knowledge: WNL - Mood Mood: Anxious - Affect Affect: Constricted - Speech Speech: Soft - Formal Thought Process Formal Thought Process: Loosening of associations - Suicidal Ideation Suicidal Ideation: No - Homicidal Ideation Homicidal Ideation: No Goal/Treatment Plan - Goal/Treatment Plan Need for Continued Stay: Remain at risks for inpatient hospitalization, Discharge may exacerbated symptoms Progress Toward Problem(s) and Goals/Treatment Plan: Schizoaffective disorder bipolar type CBT Psychoeducation Supportive therapy and group therapy Haldol for psychosis Cogentin for EPS Trazodone for insomnia Hydroxyzine for anxiety Haldol Decanoate 100 mg i/m DM Continue Metformin HTN Continue lisinopril
[2018-07-20] MEDS: (Novolin R) Insulin Human Regular 100 units/ml vial SC SCH ×4 (08:14→21:18)
[2018-07-21 06:39] VITALS: BP 97/63; PULSE 80; RESP 18; TEMP 98.8
[2018-07-21] MEDS: (Novolin R) Insulin Human Regular 100 units/ml vial SC SCH (07:57)
--- NOTE | 2018-07-21 10:56 | PCM.PYCHDC ---
Mental Status Examination - Mental Status Examination Orientation: Person, Place, Situation, Time Memory: Intact Mood: Neutral Affect: Constricted Speech: Soft Attention: WNL Concentration: WNL Discharge Summary - Discharge Note Laboratory Data: Abnormal Lab Results 07/20/18 07/20/18 07/20/18 11:21 16:19 20:12 POC Glucose (mg/dL) 304 H 300 H 321 H 07/21/18 07/21/18 03:10 07:37 POC Glucose (mg/dL) 238 H 251 H Consultations:: List each consultation separately and include: 1. Reason for request. 2. Findings. 3. Follow-up Summary of Hospital Course include:: 1. Description of specific treatment plan utilized for patients during their course of treatmen. 2. Summarize the time- course for resolution of acute symptoms and/or regressed behaviors. 3. Describe issues identified and worked on during hospitalization. 4. Describe medication utilized. 5. Describe medical problems identified and treated. 6. Reassessment of suicide risk Summary of Hospital Course: Patient is 48 y/o female who is , unemployed, english-only speaking with past hospitalization at [facility] in 2012 for suicidal ideation and PMH of Bipolar and psychosis, who comes in with auditory and visual hallucinations with paraonia. Patient remained disorganized and internally preoccupied. She states that she sees bad people who chases her and she hears voices telling her to kill herself Patient was also hospitalized at [place] for same reasons. She follows outpatient psych in [place] and her doctor prescribed her Trazodone, Olanzpine and two other medications which she forgot the name and told her that her symptoms are all in her mind She tolerates the medication fine. She also had another suicide attempt last week where she tried to overdose on trazdone but vomitted it. She previously tried Risperidone injection which helped. Patient remained internally preoccupied during the assessment and seemed to be responding to internal stimuli. Patient would grab her head and state "the voices are giving me headaches." She expresses hopelessness, helplessness, depressed mood, poor sleep and poor appetite. She reports anxiety and sometimes panic attacks. She reports auditory and visual hallucinations and paranoia. She denies any drinking or any substance abuse. Past Psych. Schizoaffective disorder Past medical history DM, HTN - Diagnosis (1) Paranoid type schizophrenia, chronic state with acute exacerbation Current Visit: Yes Status: Acute - Final Diagnosis (DSM 5) Condition upon Discharge: STABLE Disposition: HOME/ ROUTINE Follow-up Treatment Plan: Schizoaffective disorder bipolar type CBT Psychoeducation Supportive therapy and group therapy Haldol for psychosis Cogentin for EPS Trazodone for insomnia Hydroxyzine for anxiety Haldol Decanoate 100 mg i/m DM Continue Metformin HTN Continue lisinopril Prescriptions/Medication Reconciliation: Benztropine [Cogentin] 1 mg PO BID #60 tab Haloperidol [Haldol] 10 mg PO BID #60 tab OXcarbazepine [Trileptal] 300 mg PO BID #60 tab traZODone [Desyrel] 100 mg PO HS PRN #30 tab PRN Reason: Insomnia
== END 2018-07-21 11:42 | disposition home or self-care (01) | DRG 885 ==
LOC: C.ER 15:02 → C.5E 18:16
PROVIDERS: ADMIT Psychiatry & Neurology Psychiatry; ATTEND Psychiatry & Neurology Psychiatry
PROC: GZHZZZZ Group Psychotherapy (ICD-10-PCS; principal; 2018-07-10)
PROC: GZ58ZZZ Individual Psychotherapy, Cognitive-Behavioral (ICD-10-PCS; 2018-07-10)
PROC: GZ56ZZZ Individual Psychotherapy, Supportive (ICD-10-PCS; 2018-07-10)
DX: F20.0 Paranoid schizophrenia (principal); R45.851 Suicidal ideations; E11.65 Type 2 diabetes mellitus with hyperglycemia; I10 Essential (primary) hypertension; Z91.5 Personal history of self-harm; G47.00 Insomnia, unspecified; F41.9 Anxiety disorder, unspecified; F32.9 Major depressive disorder, single episode, unspecified; Z56.0 Unemployment, unspecified; Z79.4 Long term (current) use of insulin